=== PATIENT | male | born 1985 | race Caucasian/White ===

== ENCOUNTER → 2016-09-28 | Outpatient (CLI) | payer OTHER ==
--- NOTE | 2016-09-28 09:55 | DIAGNOSTIC IMAGING REPORT ---
CT SCAN OF THE PARANASAL SINUSES CLINICAL HISTORY: Chronic sinusitis. COMPARISON STUDY: No priors. TECHNIQUE: High-resolution CT scan of the paranasal sinuses is performed. Images are reviewed in the axial, sagittal, and coronal planes. IV contrast was not administered for this examination. The examination is performed utilizing the fusion protocol. CT DOSE: 670.85 mGy.cm FINDINGS: Maxillary antra: Mild dependent mucosal thickening is seen bilaterally. Anterior ethmoid sinuses: Mild to moderate mucosal thickening is seen bilaterally. Posterior ethmoid sinuses: Trace mucosal thickening is seen on the left. Clear on the right. Sphenoid sinuses: Clear. Frontal sinuses: Moderate mucosal thickening is seen in the left. Trace mucosal thickening is seen on the right. Ostiomeatal complexes: Patent bilaterally. The right ostiomeatal complex appears diminutive and there is a small bony defect within the medial wall of the right maxillary antrum. Frontoethmoidal and sphenoethmoidal recesses: Patent bilaterally. Carotid arteries: The carotid arteries are covered and without septal attachments. Ethmoid roofs: The ethmoid roofs are symmetric. Nasal turbinates: Normal in appearance. Nasal septum: There is rightward deviation of the bony nasal septum. Optic nerves: Covered. Orbits: The bony orbits are intact. Orbital contents are normal in appearance. Calvarium: The imaged calvarium is normal in appearance Mastoid air cells: Well pneumatized. Brain parenchyma: Partially visualized brain parenchyma is within normal limits.. Septum pellucidum is incidentally noted. IMPRESSION: Paranasal sinus disease as above. Electronically signed by: Rod Rodriguez M.D. 09/28/2016 9:54 AM Dictated Date/Time: 09/28/2016 9:49 AM
== END | disposition home or self-care (01) ==
LOC: C.CTS 09:36
DX: J32.9 Chronic sinusitis, unspecified (principal)

== ENCOUNTER → 2017-01-03 | Outpatient (CLI) | payer OTHER ==
--- NOTE | 2017-01-04 06:23 | PAP/PSG TECHNICIAN REPORT ---
[facility] Honing Job Setter Polysomnogram Report Study name: None Report date: 01/04/2017 Study date: 01/03/2017 Referring Physician: DR. JAQUELINE GONZALEZ Name: RENETTA ARCE Interpreting Physician: Yuriy Perez D.O. Date of : 1985 Honing Job Setter: [facility] Diet[facility] Sex: Male Age: 31 StudyType: PSG Weight: 178 lbs Height: 31 years, Height 6' 0" BMI: 24.14 Medications: NONE NOTED. Patient History PATIENT HAS HISTORY OF DAYTIME SLEEPINESS AND OCCASIONAL HEADACHES. ALSO HAS SEVERE BRUXISM IN WHICH HE WEARS A MOUTH GUARD FOR. SOME HISTORY OF SNORING. HE IS HERE TODAY FOR AN EVALUATION FOR MELISSA. ESS = 8 RM 5 Parameters Monitored NPSG: E1-M2, E2-M1, Fp1-M2, Fp2-M1, F3-M2, F4-M2, F4-M1, C3-M2, C4-M2, C4-M1, O1-M2, O2-M2, O2-M1, T3-M2, T4-M1, P3-M2, P4-M1, CHIN1, CHIN2, HR, EKG, Legs, PFLOW, SNOR, FLOW, CFLOW, Tidal Volume, THOR, ABDO, SpO2, PLTH, CPRESS, ETCO2 Wave, ETCO2, pH Sleep Architecture Sleep Stages Time at Lights Off 10:26:38 PM STAGES Time (min.) TST (%) Time at Lights On 6:01:38 AM Wake 235.0 -- Total Recording Time (TRT) 455.50 min. N1 36.0 16 Total Sleep Period (TSP) 354.0 min. N2 88.0 40 Total Sleep Time (TST) 220.0min. N3 71.0 32 Awake Time 235.5 min. REM 25.0 11 Wake after Sleep Onset 134.0 min. Sleep Efficiency (SE) 48 % Sleep Onset Latency (JAY JAY) 101.0 min. Number of Stage 1 Shifts None Awakenings 29 Stage Changes 83 Number of REM periods 1 REM 25.0 11 REM Latency 290.5 min. NREM 195.0 89 Body Position Analysis Supine Right Left Side Prone Vertical Total Sleep Time (min.) 106.7 153.1 50.0 203.08 0.0 0.0 Total Sleep Time (%) 8% 70% 23% 92 0% N/A% Total Sleep Time REM (min.) 0.0 25.0 0.0 None 0.0 0.0 Total Sleep Time NREM (min.) 16.9 128.1 50.0 None 0.0 0.0 Intermittent Wake (min.) 89.8 54.6 90.6 None 0.0 0.0 Total Sleep Period (%) 20% None None None None None Arousals Myoclonus (PLM) * Events Count Index Events Count Index Spontaneous 37 10 Events Awake (PLMW) 272 69.4 Respiratory 1 0.3 Events Asleep w/ Arousal (PLMA) 4 1.1 PLM 4 1 Events Asleep w/o Arousal (PLMS) 49 13.4 Snoring 0 0 Total Asleep 53 14.5 Total 42 11 Total 325 43 Respiratory Analysis * CA OA MA CH H RERA Total Count 0 0 0 0 3 0 3 Index 0.0 0.0 0.0 0 0.8 0 0.8 Mean Duration 0.0 0.0 0.0 0.00 20.5 0.0 20.5 Longest Duration 0.0 0.0 0.0 0.00 0.0 0.0 26.2 Respiratory Event Summary Total Supine ~Supine Right Left Prone REM NREM Apneas Count 0 0 0 0 0 N/A 0 0 Index 0.0 0 0 0.0 0.0 N/A 0 0 Hypopneas (4% Desat) Count 3 0 3 2 1 N/A 1 2 Index 0.8 0.0 1 0.8 1.2 N/A 2.4 0.6 Apneas & All Hypopneas Count 3 0 3 2 1 N/A 1 2 Index 0.8 0 1 1 1 N/A 2.4 0.6 Respiratory Events (Electrical Foreman+All Hyp+RERA) Count 3 0 3 2 1 N/A 1 2 Index 0.8 0 1 0.8 1.2 N/A 2.4 0.6 Respiratory Related Arousal Count 1 0 1 0 1 N/A 0 1 Index 0.3 0 0 0 1 N/A 0 0 Snoring Analysis Supine Right Left Prone REM NREM Total Snore duration 0.3 min Snores count 0 4 1 N/A 0 5 5 Snore mean duration 3.2 Sec Snores index 0 2 1 N/A 0.0 1.5 1.4 TST with snoring (%) 0.1% Desaturation Event Summary: Minimum %SpO2 Event Count Mean/Min/Max Duration(sec.) Desaturation Index % Time In Bed > 90 13 35.7 / 4.0 / 55.3 1.8 99.9 86 - 90 0 N/A 0.0 0.0 81 - 85 0 N/A 0.0 0.0 76 - 80 0 N/A 0.0 0.0 71 - 75 1 4.0 / 4.0 / 4.0 900.0 0.0 66 - 70 0 N/A 0.0 0.0 61 - 65 0 N/A 0.0 0.0 56 - 60 0 N/A 0.0 0.0 51 - 55 0 N/A 0.0 0.0 < 50 0 N/A 0.0 0.0 Total REM NREM Awake <50% 0.0 min. 0.0 min. 0.0 min. 0.0 min. 51 - 60% 0.0 min. 0.0 min. 0.0 min. 0.0 min. 61 - 70% 0.0 min. 0.0 min. 0.0 min. 0.0 min. 71 - 80% 0.1 min. 0.0 min. 0.0 min. 0.1 min. 81 - 90% 0.2 min. 0.0 min. 0.1 min. 0.1 min. 91 - 100% 427.0 min. 25.0 min. 194.9 min. 207.1 min. Average 94 94 94 95 Minimum SpO2 71 91 90 71 Desaturation Event Index 1.7 2.4 1.2 2.0 # Desat. Events below 89% 1 N/A N/A 1 Time(%) with Saturation below 89% 0.0 0.0 0.0 0.0 Time(min.) with Saturation below 89% 0.2 0.0 0.0 0.2 Time (mins) REM (mins) NREM (mins) % of TST SpO2 Below 90% N/A N/A NN/A 0.0 SpO2 Below 88% 0 0 0 0 Heart Rate Analysis Min (bpm) Max (bpm) Average (bpm) Awake 50 127 66 NREM 47 127 59 REM 58 83 71 Overall 47 127 60 Supplemental O2 Values Minimum O2 level: None Value Start Time End Time Honing Job Setter Comments Mr. Arce slept in the right, left and supine positions. No cardiac arrhythmia noted. Leg movements noted. No bruxism noted. Snoring was noted and scored as a 0 on a scale of 1 through 5. (0=no snoring, 5=snoring loud enough to be heard through a closed door or down the nath way) Mr. Arce awoke to use the restroom 5 times during the night. Mr. Arce stated I did not sleep as well as I do when I am in my own bed. Patient wore a mouth guard during the study. He wears this every night due to his bruxism. The final report will be interpreted and signed by a sleep physician. The completed physician report will then be placed in the patient medical record. Therapy (cm H2O) 0 TIB (min.) 455.0 TST (min.) 220.0 Sleep Onset (min.) 101.0 REM Onset From Sleep (min.) 290.5 Sleep Efficiency % 48 Wakefulness (%) 52 Wakefulness (min.) 235.5 NREM 1 (%) 16 NREM 1 (min.) 36.0 NREM 2 (%) 40 NREM 2 (min.) 88.0 NREM 3 (%) 32 NREM 3 (min.) 71.0 REM (%) 11 REM (min.) 25.0 # Arousals 42 Arousal Index 11 # Snore 5 Snore Index 1.4 AHI 0.8 AHI Supine 0 AHI Non-Supine 1 NREM AHI 0.6 REM AHI 2.4 RDI 0.8 # Obstructive Apnea 0 # Central Apnea 0 # Mixed Apnea 0 # Hypopneas 3 RERAs 0 Total Respiratory Events 3 Time Below SpO2 89% (min.) 0.0 Mean NREM SpO2 (%) 94 Mean REM SpO2 (%) 94 Mean Sleep SpO2 (%) 94 Min NREM SpO2 (%) 90 Min REM SpO2 (%) 91 Position Supine (min.) 106.7 Position Non-supine (min.) 203.1 LM Index Sleep 14.5 LM Index NREM 16.0 LM Index REM 2.4 Mean Heart Rate (bpm) 60 Min Heart Rate (bpm) 47
--- NOTE | 2017-01-05 20:31 | POLYSOMNOGRAPH REPORT ---
REFERRED BY: Dr. Franc Frias. CLINICAL DATA: The patient is a 31-year-old male with a BMI of 24.14. He has a history of bruxism. He has excessive daytime somnolence and headaches. This was an in-lab diagnostic sleep study. SLEEP ARCHITECTURE: The total sleep period was 354 minutes. The total sleep time was 220 minutes. The sleep efficiency was 48%. The sleep onset latency was 101 minutes. Wake after sleep onset was 134 minutes. Sleep consisted of stage N1 16%, stage N2 40%, stage N3 32%, and stage REM 11%. AROUSAL DATA: The patient had a total of 42 arousals including 37 spontaneous, 1 respiratory, 4 PLM. The arousal index was 11. PLM DATA: The patient had a total of 53 periodic limb movements of sleep for an index of 14.5. There were 4 arousals, associated with limb movements for a PLM arousal index of 1.1. He did have 272 limb movements during wake. EKG: The underlying EKG was normal sinus. The cardiac rates ranged from 47-83 beats per minute. No arrhythmias were noted. RESPIRATORY DATA: The patient had a total of 3 respiratory events, all hypopneas. Hypopneas were scored by the 4% desaturation rule. The apnea hypopnea index was normal at 0.8. This would suggest no sleep apnea. OXIMETRY DATA: The average saturation was 94%. The minimum saturation was 90%. There was 1 or 2 technical decreases in saturation to 71% that were clearly not valid. He had 0 time less than 88%. DIGITAL MUSIC INSTRUCTOR'S COMMENTS: The patient slept in the right, left, and supine positions. No cardiac arrhythmia noted. Leg movements noted. No bruxism noted. He was wearing a mouthguard during the study due to his history of bruxism. There was no significant snoring which was scored as a 0. IMPRESSIONS: 1. No significant sleep apnea. 2. Periodic limb movement disorder-mild. COMMENTS: The patient has a severe decrease in sleepy efficiency. In the post-sleep questionnaire, the patient indicated he was anxious about the study and uncomfortable with wires. He had a marked delay in sleep onset, he had increased of wake after sleep onset. He had no significant sleep apnea. Oxygenation was normal. There was a mild number of limb movements with few arousals. PLMs are likely not significant. RECOMMENDATIONS: Follow up will be deferred to Dr. Frias who referred this patient.
== END | disposition home or self-care (01) ==
LOC: C.NEUR 21:00
DX: F45.8 Other somatoform disorders (principal); J34.2 Deviated nasal septum; J34.3 Hypertrophy of nasal turbinates; G47.33 Obstructive sleep apnea (adult) (pediatric); J32.9 Chronic sinusitis, unspecified

== ENCOUNTER → 2017-01-26 | Outpatient (CLI) | payer OTHER | END | disposition home or self-care (01) | LOC: C.LAB 13:27 | PROVIDERS: ATTEND Specialist | DX: Z11.3 Encounter for screening for infections with a predominantly sexual mode of transmission (principal); Z11.4 Encounter for screening for human immunodeficiency virus [HIV]; Z11.9 Encounter for screening for infectious and parasitic diseases, unspecified; Z31.441 Encounter for testing of male partner of patient with recurrent pregnancy loss ==

== ENCOUNTER → 2017-03-05 | Outpatient (CLI) | payer OTHER ==
--- NOTE | 2017-03-05 11:23 | DIAGNOSTIC IMAGING REPORT ---
ULTRASOUND RIGHT LOWER EXTREMITY VENOUS CLINICAL HISTORY: Calf tenderness. COMPARISON STUDY: No priors. TECHNIQUE: Real-time, grayscale, and color Doppler sonography of the deep veins of the right lower extremity was performed from the inguinal crease to the calf. Compression and augmentation were utilized. FINDINGS: There is no sonographic evidence of deep venous thrombosis identified in the right lower extremity. The common femoral, superficial femoral, and popliteal veins are patent and normally compressible. The greater saphenous vein and the profunda femoris vein at the junction with the common femoral vein are clear. The visualized calf veins are patent. IMPRESSION: There is no sonographic evidence of deep venous thrombosis identified in the right lower extremity. Electronically signed by: Rod Rodriguez M.D. 03/05/2017 11:22 AM Dictated Date/Time: 03/05/2017 11:21 AM
== END | disposition home or self-care (01) ==
LOC: C.ULTRBC 10:46
PROVIDERS: ATTEND Physician Assistant
DX: M79.661 Pain in right lower leg (principal)